=== PATIENT | female | born 2000 | race Caucasian/White ===

== ENCOUNTER → 2023-09-28 | Outpatient (CLI) | payer BC ==
--- NOTE | 2023-09-28 11:28 | US ---
EXAMINATION TYPE: US OB >= 14 wk fetus DATE OF EXAM: 09/28/2023 COMPARISON: None CLINICAL INDICATION: Female, 22 years old with history of O36.63X0 MATERNAL CARE FOR EXCESS KORTNEY WTH, TH; Growth TECHNIQUE: Transabdominal (TA) GESTATIONAL AGE / DATING Physician Established: (35 weeks/0 days) EDC: 11/02/2023 Dates by LMP: (35 weeks/0 days) EDC: 11/02/2023 Dates by First Scan: No previous this is first scan Dates by Current Scan: (35 weeks/3 days) EDC: 10/30/2023 SURVEY IUP: Single PLACENTA: Posterior & Fundal PREVIA: No Previa LIANE: 10.6 cm Normal CERVICAL LENGTH (transabdominal: norm > 3.0cm): 3.1 cm BIOMETRY PRESENTATION: Vertex BPD: 9.0 cm 36 weeks / 4 days HC: 31.4 cm 35 weeks / 2 days AC: 31.3 cm 35 weeks / 2 days FL: 6.7 cm 34 weeks / 4 days ESTIMATED WEIGHT IN GRAMS: 2605 grams ESTIMATED WEIGHT IN LBS/OZ: 5 lbs. 12 oz. WEIGHT PERCENTAGE BASED ON ESTABLISHED DATES: 51% HC/AC: 1.0 Normal FL/AC: 21 Normal HEART RATE: 149 bpm RHYTHM: Normal Single, viable IUP/ Growth as above IMPRESSION: 1. Single intrauterine gestation estimated at 35 weeks 3 days gestation based on the current ultrasou nd measurements. Cardiac activity measures 149 bpm.
== END | disposition home or self-care (01) ==
LOC: RADUSWWP 10:32
PROVIDERS: ATTEND Obstetrics & Gynecology
DX: O36.63X1 Maternal care for excessive fetal growth, third trimester, fetus 1 (principal); Z3A.36 36 weeks gestation of pregnancy
CPT/HCPCS: 76805

== ENCOUNTER 2023-11-04 06:00 | Inpatient (IN) | payer BC ==
[2023-11-04] MEDS ORDERED: miSOPROStoL 200 MCG TAB PO PRN (06:22)
[2023-11-04] MEDS ORDERED: CARBOPROST TROMETHAMINE 250 MCG/ML 1 ML AMP IM PRN (06:22)
[2023-11-04] MEDS ORDERED: OXYTOCIN 10 UNIT/ML 1 ML VIAL IM PRN (06:22)
[2023-11-04] MEDS ORDERED: TERBUTALINE 1 MG/ML VIAL SQ PRN (06:22)
[2023-11-04] MEDS ORDERED: TRANEXAMIC 1,000 MG/100ML-NACL 1,000 MG in EMPTY BAG 1 BAG IV PRN (06:22)
[2023-11-04] MEDS: LACTATED RINGERS 1,000 ML IV SCH (06:39)
[2023-11-04] MEDS: OXYTOCIN 30 UNITS/500 ML NS 30 UNIT in SALINE 1 500ML.BAG IV SCH (06:45)
[2023-11-04 07:06] LABS: Basophils % (A) 0 %; Eosinophils % (A) 1 %; HCT 33.9 % (34.0-46.0); Lymphocytes # (A) 2.1 k/uL (1.0-4.8); Lymphocytes % (A) 26 %; MCH 28.7 pg (25.0-35.0); MCHC 32.5 g/dL (31.0-37.0); MCV 88.2 fL (80.0-100.0); Mean Platelet Volume 8.1; Monocytes # (A) 0.6 k/uL (0-1.0); Monocytes % (A) 7 %; Neutrophils # (A) 5.2 k/uL (1.3-7.7); Neutrophils % (A) 64 %; Platelet Count 277 k/uL (150-450); RBC 3.84 m/uL (3.80-5.40); RDW 13.5 % (11.5-15.5); WBC 8.2 k/uL (3.8-10.6)
--- NOTE | 2023-11-04 07:29 | P.HPOB ---
History of Present Illness H&P Date: 11/04/23 Chief Complaint: induction of labor 22-year-old presents at 40 weeks and 2 days for induction of labor. Her cervix is 3 cm dilated, 70% effaced, -2 station. She is abby irregularly. heart tones 135 with moderate variability and reactive. Review of Systems All systems: negative Constitutional: Denies chills, Denies fever Eyes: denies blurred vision, denies pain Ears, nose, mouth and throat: Denies headache, Denies sore throat Cardiovascular: Denies chest pain, Denies shortness of breath Respiratory: Denies cough Gastrointestinal: Denies abdominal pain, Denies diarrhea, Denies nausea, Denies vomiting Genitourinary: Denies dysuria, Denies hematuria Musculoskeletal: Denies myalgias Integumentary: Denies pruritus, Denies rash Neurological: Denies numbness, Denies weakness Psychiatric: Denies anxiety, Denies depression Endocrine: Denies fatigue, Denies weight change Past Medical History Past Medical History: No Reported History History of Any Multi-Drug Resistant Organisms: None Reported Past Surgical History: No Surgical Hx Reported Past Anesthesia/Blood Transfusion Reactions: No Reported Reaction Smoking Status: Never smoker Past Drug Use History: None Reported Medications and Allergies Allergies Allergy/AdvReac Type Severity Reaction Status Date / Time No Known Allergies Allergy Verified 11/04/23 06:21 Exam Osteopathic Statement: *. No significant issues noted on an osteopathic structural exam other than those noted in the History and Physical/Consult. Intake and Output 11/03/23 11/04/23 11/04/23 22:59 06:59 14:59 Other: Weight 81.647 kg Heart: Regular rate and rhythm Lungs: Clear to auscultation bilaterally Abdomen: Soft, nontender Extremities: Negative Homans sign Results Result Diagrams: 11/04/23 06:37 Abnormal Lab Results - Last 24 Hours (Table) 11/04/23 Range/Units 06:37 Hgb 11.0 L (11.4-16.0) gm/dL Hct 33.9 L (34.0-46.0) % Assessment and Plan (1) Encounter for induction of labor Current Visit: Yes Status: Acute Code(s): Z34.90 - ENCNTR FOR SUPRVSN OF NORMAL , UNSP, UNSP TRIMESTER SNOMED Code(s): 778742001 Plan: 1. induction of labor with amniotomy and pitocin 2. anticipate normal vaginal delivery
[2023-11-04] MEDS ORDERED: SODIUM CHLORIDE 0.9% 250 ML BAG ONE (09:31)
[2023-11-04] MEDS ORDERED: ROPIVACAINE 5 MG/ML 30 ML VIAL ONE (09:31)
[2023-11-04] MEDS ORDERED: fentaNYL (PF) 50 MCG/ML 5 ML AMP ONE (09:31)
[2023-11-04] MEDS: ROPIVACAINE 225 MG, fentaNYL (PF). 450 MCG in SODIUM CHLORIDE 0.9% 171 ML EPIDURAL ONE (11:52)
[2023-11-04] MEDS: LIDOCAINE 0.5% (PF) 5 MG/ML (50 ML SDV) SQ PRN (14:38)
[2023-11-04] MEDS: METHYLERGONOVINE 0.2 MG/ML 1 ML AMP IM PRN (15:20)
[2023-11-04] MEDS ORDERED: diphenhydrAMINE 25 MG CAP PO PRN (15:34)
[2023-11-04] MEDS ORDERED: HYDROCORTISONE 2.5% RECTAL CREAM 30 GM TUBE RECTAL PRN (15:34)
[2023-11-04] MEDS ORDERED: diphenhydrAMINE 50 MG/ML 1 ML VIAL IVP PRN ×2 (15:34)
[2023-11-04] MEDS ORDERED: BENZOCAINE/MENTHOL SPRAY 1 GM/SPRAY AEROSOL TOPICAL PRN (15:34)
[2023-11-04] MEDS ORDERED: LANOLIN CREAM 1 GM TUBE TOPICAL PRN (15:34)
[2023-11-04] MEDS ORDERED: diphenhydrAMINE 50 MG CAP PO PRN (15:34)
[2023-11-04] MEDS ORDERED: ACETAMINOPHEN TAB 325 MG TAB PO PRN (15:34)
[2023-11-04] MEDS ORDERED: ZOLPIDEM 5 MG TAB PO PRN (15:34)
[2023-11-04] MEDS: SENNOSIDES-DOCUSATE SODIUM 1 EACH TAB PO SCH (19:52)
[2023-11-05 07:40] LABS: Basophils % (A) 0 %; Eosinophils # (A) 0.1 k/uL (0-0.7); Eosinophils % (A) 0 %; HCT 33.1 % (34.0-46.0); HGB 10.7 gm/dL (11.4-16.0); Lymphocytes # (A) 2.1 k/uL (1.0-4.8); Lymphocytes % (A) 16 %; MCH 28.4 pg (25.0-35.0); MCHC 32.4 g/dL (31.0-37.0); MCV 87.7 fL (80.0-100.0); Mean Platelet Volume 8.4; Monocytes # (A) 0.8 k/uL (0-1.0); Monocytes % (A) 6 %; Neutrophils % (A) 76 %; Platelet Count 231 k/uL (150-450); RBC 3.78 m/uL (3.80-5.40); RDW 13.4 % (11.5-15.5); WBC 13.3 k/uL (3.8-10.6)
[2023-11-05] MEDS: IBUPROFEN 600 MG TAB PO PRN (08:24)
--- NOTE | 2023-11-05 09:03 | P.PROBDLV ---
Vaginal Delivery Note - . Vaginal Delivery Note: 22-year-old presents at 40 weeks and 2 days for induction of labor. Her cervix is 3 cm dilated, 70% effaced, -2 station. She is abby irregularly. heart tones 135 with moderate variability and reactive. Pitocin was started and amniotomy performed at 7:20 AM, clear fluid noted. When patient was uncomfortable she did get an epidural and was 5 cm at that time. Her cervix was completely dilated at 1337. She pushed Infant to the perineum and had a few more contractions for the baby wasn't moving. I cut a small episiotomy after infiltrating with 1% lidocaine. Patient pushed one more time and and a viable male infant over Midline episiotomy under epidural anesthesia at 1434.Head delivered OA, nuchal cord 1 easily reduced, anterior shoulder delivered gentle downward guidance followed by posterior shoulder and rest of body. Nose and mouth bulb suctioned, cord clamped and cut, infant placed mother's abdomen. Apgars 8, 8, weight 7 lbs. 15 oz. Placenta delivered spontaneous, intact with three-vessel cord at 1437. Vagina, cervix, and pe rineum were inspected. Second-degree midline episiotomy was repaired with 3-0 Vicryl. Estimated blood loss 200 mL. Mother and baby in stable condition.
--- NOTE | 2023-11-05 09:05 | P.DS ---
Providers Date of admission: 11/04/23 06:08 Expected date of discharge: 11/05/23 Attending physician: Camila Campo Primary care physician: Stated None - Discharge Diagnosis(es) (1) Encounter for induction of labor Current Visit: Yes Status: Resolved (2) Normal vaginal delivery Current Visit: Yes Status: Acute Hospital Course: Patient presented for induction of labor at 40 weeks and 2 days. She underwent a normal vaginal delivery. course uneventful. She denies nausea, vomiting, chest pain, shortness of breath or calf pain. Patient will be discharged home day #1 in stable condition to follow-up with me in 6 weeks. Plan - Discharge Summary New Discharge Prescriptions: New Ibuprofen [Motrin] 600 mg PO Q6HR PRN #30 tab PRN Reason: Mild Pain (Scale 1 To 3) Discharge Medication List Ibuprofen [Motrin] 600 mg PO Q6HR PRN #30 tab 11/05/23 [Rx] Follow up Appointment(s)/Referral(s): Camila Campo DO [Doctor of Osteopathic Medicine] - 12/16/23 11:30 am Discharge Disposition: HOME SELF-CARE
[2023-11-05 09:07] VITALS: BP 114/74; PULSE 93; RESP 14; TEMP 97.8
== END 2023-11-05 16:05 | disposition home or self-care (01) | DRG 807 ==
LOC: 4FBP 06:08
PROVIDERS: ADMIT Obstetrics & Gynecology; ATTEND Obstetrics & Gynecology
PROC: 3E033VJ Introduction of Other Hormone into Peripheral Vein, Percutaneous Approach (ICD-10-PCS; principal; 2023-11-04)
PROC: 0W8NXZZ Division of Female Perineum, External Approach (ICD-10-PCS; principal; 2023-11-04)
PROC: 10907ZC Drainage of Amniotic Fluid, Therapeutic from Products of Conception, Via Natural or Artificial Opening (ICD-10-PCS; principal; 2023-11-04)
PROC: 10E0XZZ Delivery of Products of Conception, External Approach (ICD-10-PCS; principal; 2023-11-04)
DX: O48.0 Post-term pregnancy (principal); O69.81X0 Labor and delivery complicated by cord around neck, without compression, not applicable or unspecified; Z28.310 Unvaccinated for COVID-19; Z3A.40 40 weeks gestation of pregnancy; Z37.0 Single live birth
CPT/HCPCS: 85025; 86850; 86900; 86901